=== PATIENT | male | born 1955 | race Caucasian/White ===

== ENCOUNTER → 2017-02-28 | Outpatient (CLI) | payer OTHER ==
--- NOTE | 2017-02-28 17:23 | CONS ---
CONSULTATION REASON FOR CONSULTATION: Consultation note for sleep apnea. This is a 62-year-old male patient, who has been diagnosed and treated for obstructive sleep apnea more than 10 years ago and his initial evaluation was done at [facility]. Back then, the patient was told to have severe PATRICIO and was given CPAP therapy which he used for few years with good success and ultimately quit. The patient is coming in for evaluation knowing that he has become symptomatic again. He is having increased snoring, increased hypersomnia and sleepiness and he is having increased nocturia. He goes to bed around 10:00 pm, wakes up 6:00 am in the morning. He snores very loud and he quits breathing as reported by the . He is quite sleepy during the day. Sometimes he feels that he has an increased risk of falling asleep while driving. However he has never fallen asleep behind the wheel. Nor he has never been involved in a motor vehicle accident. No recent weight gain or weight loss. His sleep is fragmented and he wakes up constantly throughout the night mainly to urinate. He is coming in to be evaluated for obstructive sleep apnea. PAST MEDICAL HISTORY: PATRICIO by history, hyperlipidemia and hypertension. Surgical history include appendectomy, cholecystectomy, hernia repair, carpal tunnel release and tonsillectomy. DRUG ALLERGIES: Not known. OUTPATIENT MEDICATION LIST: Includes Lipitor 40 daily, metoprolol succinate 50 mg ER 1 tablet a day. day, aspirin 81 mg p.o. daily. SOCIAL HISTORY: The patient is a nonsmoker. No history of alcohol. No history of IV drugs. FAMILY HISTORY: Negative for sleep apnea. REVIEW OF SYSTEMS: 12-point review of system was done and positive findings are mentioned above in the history of present illness. Of significance is the absence of any sleepwalking, no dry mouth. No anxiety or panic attacks. No palpitation. No nocturnal chest pain, heart burn or no shortness of breath. No anxiety. No problems with memory or concentration. No irritability. No depression. No sexual dysfunction. No claustrophobia. PHYSICAL EXAMINATION: BP is 147/78, pulse 71, respirations 16, temperature 98.1, saturation 95% on room air. Weight is 238. Height is 5 feet 10 inches, neck size 17 inches. BMI 34.1. General appearance calm comfortable. No acute distress. Head is atraumatic, normocephalic. Neck: Short, supple, Mallampati class 1. No goiter or neck masses. LUNGS: Clear to auscultation. HEART: Sounds regular rate and rhythm. Normal S1, S2. No S3, S4. No murmurs. ABDOMEN: Soft, nontender. No organomegaly. Extremities there is no edema. No cyanosis or clubbing. NEUROLOGIC: Alert and oriented x3. No focal neurological deficits. Psychiatric: No anxiety or depression. SKIN: Negative for ulcerations, wound or cellulitis. IMPRESSION: 1. Symptomatic sleep apnea currently the patient is coming in for reevaluation. After being treated approximately 10 years ago the patient is requesting reevaluation knowing that he has become more symptomatic. 2. Hyperlipidemia. 3. Hypertension. PLAN: We will schedule the patient for a split night study. Split night will re-establish the patient's diagnosis and if his AHI is more than 40, we will proceed with CPAP treatment during the same setting. We will make further adjustments on the CPAP pressure, mask interface based on his clinical response and compliance. We will continue to follow. MMODL / IJN: [id number] /
== END ==
LOC: SLEEP 14:40
PROVIDERS: ATTEND Internal Medicine Critical Care Medicine
DX: G47.33 Obstructive sleep apnea (adult) (pediatric) (principal); E78.5 Hyperlipidemia, unspecified; I10 Essential (primary) hypertension; Z79.899 Other long term (current) drug therapy; Z79.82 Long term (current) use of aspirin
CPT/HCPCS: 99211

== ENCOUNTER → 2017-06-06 | Outpatient (CLI) | payer OTHER ==
--- NOTE | 2017-06-06 14:30 | PN ---
PROGRESS NOTE This is a 62-year-old male patient who [facility] in regards to obstructive sleep apnea. The patient was diagnosed having PATRICIO more than 10 years ago. He had become more symptomatic and he was reporting snoring and hypersomnia and sleepiness and for that reason, the patient underwent a followup screening polysomnogram during which he was found to have mild PATRICIO with an AHI of 5.5, worse during REM, knowing that his AHI during REM was high as 39.6, and he was having some desaturations. The patient was having chronic hypersomnia and sleepiness and an Francisco score of 13 and based on that, I gave him an automatic CPAP unit with a minimum pressure of 5, maximum pressure of 20 and today he is coming in for a compliancy check. The patient is reporting that his sleep quality improved with oral CPAP therapy. He is sleeping much more comfortable and he is waking up much more alert and refreshed during the day and he is benefitting from the treatment. He is using an AirFit P10 nose pillow. His Francisco score is down to 7. He has been utilizing his CPAP on an average of 6.3 hours per night. His CPAP use for more than 4 hours is above 90%. His leak factor is at 10 L/minute. His AHI while on treatment is down to 2.1. He has no complaints and he is benefitting from the treatment. His current vital signs are as follows: BP is 120/75, pulse 67, respirations 18, Francisco score is down to 7, saturation 97% on room air. Weight is 243. GENERAL APPEARANCE: Calm, comfortable, not in distress. Head is atraumatic, normocephalic. Neck is supple. Short, no goiter or neck masses. Mallampati class 4. LUNGS: Clear to auscultation. Heart sounds are regular rate and rhythm. Normal S1, S2. No S3, S4. No murmurs. Abdomen is soft, nontender. No organomegaly. EXTREMITIES: No edema. No cyanosis or clubbing. NEUROLOGIC: Alert and oriented x3. There is no focal neurological deficits. PSYCHIATRIC: Negative for anxiety or depression. SKIN: Negative for any wounds or ulceration. IMPRESSION: 1. Mild obstructive sleep apnea, REM specific with an apnea-hypopnea index of o5.5 at baseline. The patient underwent successful auto CPAP treatment. 2. Chronic hypersomnia, improved with CPAP therapy. 3. Snoring, recovered with CPAP therapy. 4. Obesity with body mass index of 34. 5. Hyperlipidemia. 6. Hypertension. PLAN: Treatment is successful, continue with same pressure setting. Compliance data was reviewed. Encourage weight loss and no other adjustments from my standpoint, the patient will see him back in followup in a year's time, earlier if needed. CARLIN / NATACHAN: [id number] /
== END | disposition home or self-care (01) ==
LOC: SLEEP 12:05
PROVIDERS: ATTEND Internal Medicine Critical Care Medicine
DX: G47.33 Obstructive sleep apnea (adult) (pediatric) (principal); E66.9 Obesity, unspecified; E78.5 Hyperlipidemia, unspecified; I10 Essential (primary) hypertension; Z68.34 Body mass index [BMI] 34.0-34.9, adult

== ENCOUNTER 2019-01-30 15:35 | Observation (INO) | payer MEDICARE ==
--- NOTE | 2019-01-30 16:21 | ED ---
ENT HPI - General Source: patient Mode of arrival: ambulatory Limitations: no limitations <Norma North - Last Filed: 01/30/19 18:25> <Orlando Howell - Last Filed: 01/30/19 18:43> - General Chief complaint: ENT Stated complaint: Poss mastoiditis Time Seen by Provider: 01/30/19 16:19 - History of Present Illness Initial comments: 64-year-old male with no severe past medical history presenting today for chief complaint of redness of the scalp. Patient states he has had ear pain of the right ear on and off for the past week. Patient states this subsided today. Patient states and he thought the ear pain management been referred pain from a tooth otherwise no specific tooth pain and presented his dentist. Dentist thought he may have mastoiditis secondary to redness behind the right ear and sent to the emergency department for evaluation. Patient states that he noticed some mild discomfort behind the ear and redness but today said the redness spread across his forehead towards the other ear. Patient denies any blistering or severe pain denies any visual changes or eye pain. Patient denies any other affected areas. Patient denies any medications. Remaining review of system negative. Upon arrival patient appears well signs of acute distress. Afebrile. Denies history of fever or flulike symptoms. (Norma North) - Related Data Home Medications Medication Instructions Recorded Confirmed Aspirin EC [Ecotrin Low Dose] 81 mg PO HS 01/30/19 01/30/19 Clindamycin HCl [Cleocin] 150 mg PO QID 01/30/19 01/30/19 Diltiazem HCl [Cartia Xt] 180 mg PO HS 01/30/19 01/30/19 Multivit-Min/FA/Lycopen/Lutein 1 tab PO HS 01/30/19 01/30/19 [Centrum Silver Men Tablet] Rosuvastatin [Crestor] 20 mg PO HS 01/30/19 01/30/19 Allergies Allergy/AdvReac Type Severity Reaction Status Date / Time No Known Allergies Allergy Verified 01/30/19 17:58 Review of Systems ROS Other: All systems not noted in ROS Statement are negative. <Norma North - Last Filed: 01/30/19 18:25> ROS Other: All systems not noted in ROS Statement are negative. <Orlando Howell - Last Filed: 01/30/19 18:43> ROS Statement: Those systems with pertinent positive or pertinent negative responses have been documented in the HPI. 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 History of Any Multi-Drug Resistant Organisms: None Reported Past Surgical History: Appendectomy, Cholecystectomy Additional Past Surgical History / Comment(s): carpal tunnel Past Psychological History: No Psychological Hx Reported Smoking Status: Never smoker Past Alcohol Use History: None Reported Past Drug Use History: None Reported <Norma North - Last Filed: 01/30/19 18:25> General Exam Limitations: no limitations <Norma North - Last Filed: 01/30/19 18:25> - General Exam Comments Initial Comments: General: The patient is awake and alert, in no distress Eye: +3 mm pupils are equal, round and reactive to light, extra-ocular move ments are intact. No nystagmus. There is normal conjunctiva bilaterally. No signs of icterus. No photophobia Ears, nose, mouth and throat: There are moist mucous membranes and no oral lesions. Oropharynx was not erythematous there is no tonsillar enlargement exudates or lesions. Uvula midline. Tympanic membranes are not erythematous or is no effusions bulging or retraction. There is no tenderness to palpation of the left mastoid. Very mild tenderness to patient over the right mastoid. There is mild redness of the posterior right ear that extends across the f orehead and toward see a septal region. Extensive. No blistering or vesicular lesions. No anterior cervical lymphadenopathy. Rhinorrhea, clear and bilateral nares. No tripoding, no drooling. Neck: The neck is supple, there is no tenderness or JVD. No nuchal rigidity Cardiovascular: There is a regular rate and rhythm. No murmur, rub or gallop is appreciated. Respiratory: Lungs are clear to auscultation, respirations are non-labored, breath sounds are equal. No wheezes, stridor, rales, or rhonchi. No retractio ns or abdominal breathing. Musculoskeletal: Normal ROM, no tenderness. Strength 5/5. Sensation intact. Radial pulses equal bilaterally 2+. Neurological: A&O x 3. CN II-XII intact grossly, There are no obvious motor or sensory deficits. Coordination appears grossly intact. Speech appears normal, no muffling. Skin: Skin is warm and dry and no rashes or lesions are noted. No extremity edema Psychiatric: Cooperative (Norma North) Course <Orlando Howell - Last Filed: 01/30/19 18:43> Vital Signs 01/30/19 01/30/19 15:54 17:43 Temperature 98.4 F Pulse Rate 68 59 L Respiratory 18 18 Rate Blood Pressure 118/65 118/68 O2 Sat by Pulse 97 95 Oximetry - Reevaluation(s) Reevaluation #1: 01/30/19 18:42 Patient reexamined and reevaluated by myself, Dr. Howell. I do agree with PA Findings. This includes diagnostic interpretation and treatment plan. Case was discussed in detail with Dr. Wall, who will admit covered for Dr. Barksdale. Patient does have cellulitis near the right ear and right side of the face with mild swelling and tenderness. Cellulitis does extend to the left superior parietal region as well. There is some mild TM erythema. (Orlando Howell) Medical Decision Making - Lab Data Result diagrams: 01/30/19 17:06 01/30/19 17:06 <Norma North - Last Filed: 01/30/19 18:25> - Lab Data Result diagrams: 01/30/19 17:06 01/30/19 17:06 <Orlando Howell - Last Filed: 01/30/19 18:43> - Medical Decision Making 64-year-old male presenting for redness over the scalp. Concern for mastoiditis. CT negative for mastoiditis. No leukocytosis. Patient afebrile well-appearing there is extensive cellulitis of the scalp. Given the extensive nature of the cellulitis with location on the head after denies vomiting or bladder she preferred admission for IV antibiotics and monitoring. Dr. Wall accepted admission. Patient given Rocephin including the mycin in the emergency department. Patient is agreeable to admission. Patient transferred to the floor appearing well (Norma North) - Lab Data Lab Results 01/30/19 01/30/19 01/30/19 Range/Units 17:06 17:06 17:06 WBC 10.2 (3.8-10.6) k/uL RBC 4.48 (4.30-5.90) m/uL Hgb 13.4 (13.0-17.5) gm/dL Hct 40.6 (39.0-53.0) % MCV 90.6 (80.0-100.0) fL MCH 30.0 (25.0-35.0) pg MCHC 33.1 (31.0-37.0) g/dL RDW 12.8 (11.5-15.5) % Plt Count 188 (150-450) k/uL Neutrophils % 72 % Lymphocytes % 16 % Monocytes % 8 % Eosinophils % 1 % Basophils % 1 % Neutrophils # 7.3 (1.3-7.7) k/uL Lymphocytes # 1.7 (1.0-4.8) k/uL Monocytes # 0.8 (0-1.0) k/uL Eosinophils # 0.1 (0-0.7) k/uL Basophils # 0.1 (0-0.2) k/uL Sodium 138 (137-145) mmol/L Potassium 4.1 (3.5-5.1) mmol/L Chloride 105 (98-107) mmol/L Carbon Dioxide 24 (22-30) mmol/L Anion Gap 9 mmol/L BUN 24 H (9-20) mg/dL Creatinine 0.77 (0.66-1.25) mg/dL Est GFR (CKD-EPI)AfAm >90 (>60 ml/min/1.73 sqM) Est GFR (CKD-EPI)NonAf >90 (>60 ml/min/1.73 sqM) Glucose 87 (74-99) mg/dL Plasma Lactic Acid Demetri 1.0 (0.7-2.0) mmol/L Calcium 9.2 (8.4-10.2) mg/dL Total Bilirubin 0.6 (0.2-1.3) mg/dL AST 36 (17-59) U/L ALT 34 (21-72) U/L Alkaline Phosphatase 99 (38-126) U/L Total Protein 7.9 (6.3-8.2) g/dL Albumin 4.2 (3.5-5.0) g/dL Disposition Is patient prescribed a controlled substance at d/c from ED?: No Time of Disposition: 18:24 Decision to Admit Reason: Admit from EC Decision Date: 01/30/19 Decision Time: 18:24 <Norma North - Last Filed: 01/30/19 18:25> <Orlando Howell - Last Filed: 01/30/19 18:43> Clinical Impression: Cellulitis, Cellulitis of head or scalp Disposition: ADMITTED IP TO THIS [facility] Condition: Stable Referrals: Armando Barksdale MD [Primary Care Provider] - 1-2 days
[2019-01-30] MEDS ORDERED: CLINDAMYCIN 600 MG in DEXTROSE 5% IN WATER 50 ML IVPB STA ×2 (16:42)
[2019-01-30 17:19] LABS: Basophils # (A) 0.1 k/uL (0-0.2); Basophils % (A) 1 %; Eosinophils # (A) 0.1 k/uL (0-0.7); Eosinophils % (A) 1 %; HCT 40.6 % (39.0-53.0); HGB 13.4 gm/dL (13.0-17.5); Lymphocytes # (A) 1.7 k/uL (1.0-4.8); Lymphocytes % (A) 16 %; MCHC 33.1 g/dL (31.0-37.0); MCV 90.6 fL (80.0-100.0); Mean Platelet Volume 6.4; Monocytes # (A) 0.8 k/uL (0-1.0); Monocytes % (A) 8 %; Neutrophils # (A) 7.3 k/uL (1.3-7.7); Neutrophils % (A) 72 %; Platelet Count 188 k/uL (150-450); RBC 4.48 m/uL (4.30-5.90); RDW 12.8 % (11.5-15.5); WBC 10.2 k/uL (3.8-10.6)
[2019-01-30 17:28] LABS: ALT 34 U/L (21-72); AST 36 U/L (17-59); African American GFR (CKD) >90 (>60 ml/min/1.73 sqM); Albumin 4.2 g/dL (3.5-5.0); Alkaline Phosphatase 99 U/L (38-126); Anion Gap 9 mmol/L; Blood Urea Nitrogen 24 mg/dL (9-20); Calcium 9.2 mg/dL (8.4-10.2); Carbon Dioxide 24 mmol/L (22-30); Chloride 105 mmol/L (98-107); Glucose 87 mg/dL (74-99); Non-African American GFR(CKD) >90 (>60 ml/min/1.73 sqM); Potassium 4.1 mmol/L (3.5-5.1); Sodium 138 mmol/L (137-145); Total Bilirubin 0.6 mg/dL (0.2-1.3); Total Protein 7.9 g/dL (6.3-8.2)
--- NOTE | 2019-01-30 17:36 | CT ---
EXAMINATION TYPE: CT mastoid wo con DATE OF EXAM: 01/30/2019 COMPARISON: HISTORY: Mastoiditis CT DLP: 315.6 mGycm. Automated Exposure Control for Dose Reduction was Utilized. TECHNIQUE: CT scan of internal auditory canal is performed without contrast, thin cut axial images ar e obtained, coronal reformatted images are also reviewed. FINDINGS: There is normal aeration of the temporal bones. External auditory canals appear normal. Mas toid sinuses appear normal. There is normal aeration of the epitympanic recess bilaterally. Semicircu lar canals appear intact. I see no bony destructive process. IMPRESSION: Normal CT scan of the temporal bones. No evidence of mastoiditis.
[2019-01-30] MEDS ORDERED: cefTRIAXone IN SWFI 1,000 MG/10 ML SYRINGE IVP STA (18:14)
[2019-01-30] MEDS ORDERED: IBUPROFEN 400 MG TAB PO PRN (18:24)
[2019-01-30] MEDS ORDERED: ACETAMINOPHEN TAB 325 MG TAB PO PRN (18:24)
[2019-01-30] MEDS ORDERED: NALOXONE 0.4 MG/ML 1 ML VIAL IV PRN (18:24)
[2019-01-30] MEDS ORDERED: traMADol 50 MG TAB PO PRN (18:24)
[2019-01-30] MEDS ORDERED: ONDANSETRON 4 MG/2 ML VIAL IVP PRN (18:24)
[2019-01-30 20:00] VITALS: RESP 16
[2019-01-30 20:59] VITALS: BMI 27.8
[2019-01-30] MEDS: SODIUM CHLORIDE 0.9% 1,000 ML IV SCH (21:50)
[2019-01-30] MEDS: ATORVASTATIN 40 MG TAB PO SCH (21:54)
[2019-01-30] MEDS: ASPIRIN 81 MG PO SCH (21:54)
[2019-01-30] MEDS: VIT A,C & E-LUTEIN-MINERALS 1 EACH TAB PO SCH (22:16)
[2019-01-30] MEDS: DILTIAZEM CD 180 MG CAP.ER.24H PO SCH (22:16)
[2019-01-31] MEDS: SODIUM CHLORIDE 0.9% 1,000 ML IV SCH ×3 (04:55→15:01)
[2019-01-31] MEDS ORDERED: VANCOMYCIN IV PER PHARMACY 1 EACH MISC MISCELLANE PRN (11:08)
[2019-01-31] MEDS ORDERED: VANCOMYCIN 2,000 MG in SODIUM CHLORIDE 0.9% 500 ML 500 ML IVPB ONE (12:00)
[2019-01-31] MEDS: NAPROXEN 250 MG TAB PO SCH ×2 (15:02→21:41)
[2019-01-31] MEDS: ATORVASTATIN 40 MG TAB PO SCH (20:07)
[2019-01-31] MEDS: ASPIRIN 81 MG PO SCH (20:07)
[2019-01-31] MEDS: VANCOMYCIN 1,500 MG in SODIUM CHLORIDE 0.9% 250 ML IVPB SCH (20:07)
[2019-01-31] MEDS: DILTIAZEM CD 180 MG CAP.ER.24H PO SCH (20:28)
[2019-01-31] MEDS: VIT A,C & E-LUTEIN-MINERALS 1 EACH TAB PO SCH (20:28)
--- NOTE | 2019-01-31 22:29 | P.HPIM ---
History of Present Illness H&P Date: 01/31/19 Chief Complaint: Redness scalp History of presenting complaint: This is a very pleasant 64-year-old patient of Dr. Armando Barksdale. Chronic stable medical conditions include hyperlipidemia, hypertension, Raynaud's disease. Patient about a week ago started out to her ear infection to slowly continued to spread. He went to affect the right side of the face and upper the scalp. It especially tender to touch. No obvious fever no chills. Patient did see his family doctor. Was put on clindamycin. It was not improving. Having failed outpatient treatment she decided to come in. Patient does use a Q-tip every night. Does not remember any insect bite. Or any local trauma otherwise. Neither nausea nor vomiting. Patient did get a dose of IV clindamycin in the ER. Review of systems: GEN.: Tired EYES: None HEENT: As above NECK: None RESPIRATORY: None CARDIOVASCULAR: None GASTROINTESTINAL: None GENITOURINARY: None MUSCULOSKELETAL: None LYMPHATICS: None HEMATOLOGICAL: None PSYCHIATRY: None NEUROLOGICAL: None Social history: Does not smoke or drink alcohol. . Retired. Family history: Reviewed, noncontributory to presentation Physical examination: VITAL SIGNS: [28.4, 68, 18, 11 8/65, 97% room air GENERAL: [BMI 27.9, sitting up in a chair bed comfortable. EYES: Pupils equal. Conjunctiva normal. HEENT: Patient has some redness of the external ear on the right side some redness of the adjoining part of the face going up to Scalp. Tender to touch.. NECK: JVD not raised; masses not palpable. HEART: First and second heart sounds are normal; no edema. LUNGS: Respiratory rate normal; clear to auscultation. ABDOMEN: Soft, nontender, liver spleen not palpable, no masses palpable. PSYCH: Alert and oriented x3; mood and affect normal. NEUROLOGICAL: Cranial nerves grossly intact; no facial asymmetry, power and sensation grossly intact. LYMPHATICS: No lymph nodes palpable in the axilla and neck INVESTIGATIONS, reviewed in the clinical context: White count 10.2 hemoglobin 13.4 platelets 188 percussion 4.[address] of the mastoid without contrast-negative Assessment: -Acute otitis externa, possibly been precipitated by use of a Q-tip causing microtrauma leading to cellulitis that there have spread to the face and the scalp, something like erysipelas. Having failed outpatient treatment with clindamycin. Patient does not have any fever and chills. -Hyperlipidemia -Essential hypertension -Raynaud's disease Plan: Patient started and IV vancomycin. Today. We'll give another dose tomorrow morning. Hoping that should improve. We'll try to skin walked area. Patient then could be possibly discharged on Bactrim or doxycycline depending on clinical response. Patient was advised not use any Q-tip. Told the nurse to use a warm compress. Care discussed with the patient yajaira Browning. 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 History of Any Multi-Drug Resistant Organisms: None Reported Past Surgical History: Appendectomy, Cholecystectomy Additional Past Surgical History / Comment(s): carpal tunnel Past Anesthesia/Blood Transfusion Reactions: No Reported Reaction Past Psychological History: No Psychological Hx Reported Smoking Status: Never smoker Past Alcohol Use History: None Reported Past Drug Use History: None Reported Medications and Allergies Home Medications Medication Instructions Recorded Confirmed Type Aspirin EC [Ecotrin Low Dose] 81 mg PO HS 01/30/19 01/30/19 History Clindamycin HCl [Cleocin] 150 mg PO QID 01/30/19 01/30/19 History Diltiazem HCl [Cartia Xt] 180 mg PO HS 01/30/19 01/30/19 History Multivit-Min/FA/Lycopen/Lutein 1 tab PO HS 01/30/19 01/30/19 History [Centrum Silver Men Tablet] Rosuvastatin [Crestor] 20 mg PO HS 01/30/19 01/30/19 History Allergies Allergy/AdvReac Type Severity Reaction Status Date / Time No Known Allergies Allergy Verified 01/30/19 17:58 Physical Exam Vitals: Vital Signs Temp Pulse Resp BP Pulse Ox 01/31/19 20:25 98.1 F 48 L 16 123/70 96 01/31/19 15:19 16 01/31/19 15:00 97.8 F 62 16 128/73 95 01/31/19 07:29 16 01/31/19 04:40 98.3 F 58 L 16 119/70 94 L 01/31/19 00:26 73 Intake and Output 01/31/19 01/31/19 01/31/19 06:59 14:59 22:59 Other: Voiding Method Toilet Toilet Toilet # Voids 2 2 1 Results CBC & Chem 7: 01/30/19 17:06 01/30/19 17:06 Labs: Microbiology - Last 24 Hours (Table) 01/30/19 17:06 Blood Culture - Preliminary Blood No Growth after 24 hours Thrombosis Risk Factor Assmnt - Choose All That Apply Any of the Below Risk Factors Present?: Yes Each Factor Represents 1 point: Age 41-60 years Thrombosis Risk Factor Assessment Total Risk Factor Score: 1 Thrombosis Risk Factor Assessment Level: Low Risk
--- NOTE | 2019-01-31 22:58 | P.CONS ---
History of Present Illness - Reason for Consult Consult date: 01/31/19 - Chief Complaint Pain left side of face - History of Present Illness Pleasant 64-year-old male who relates that he had a somewhat sudden onset of significant pain near his right jaw. He thought maybe he was having some difficulty with an upper tooth. He took some anti-inflammatory and has some slight improvement. He believes the next day he then started to have some increasing amount of pain especially at the right ear and the area became considerably more tender over the ear in the jaw area. He probably was seen in the outpatient clinic and they became concerned so the possibility of a mastoiditis given the redness pain and difficulty in the area and he was sent to hospital. He subsequently underwent some imaging studies which did not reveal mastoiditis with the patient evidence of a significant amount of erythema that was on the right side of the face that tracked up onto the scalp and involved the anterior aspect of the ear. With evidence of the cellulitis the patient was admitted and the consult was requested. The patient has not had any difficulties like this in the past. He had no trauma to the area, as noted was seen by dentist with no evidence of any intraoral disease. He does not have any complaints of tooth pain either. Review of Systems HEENT:Denies headache or acute visual change. Denies sinus discomforts. Denies neck stiffness or pain. Denies difficulty on swallowing. As per the HPI is discomfort on the outside of the right lateral jaw and preauricular area Lungs: Denies significant shortness of breath, cough, sputum production, or hemoptysis. Cardiovascular: Denies significant shortness of breath, chest pain, chest wall pain, orthopnea, dyspnea on exertion, syncope Gastrointestinal:Denies nausea, vomiting, diarrhea, constipation, hematemesis, melena, hematochezia. No no significant change of bowel habit noticed. Musculoskeletal: denies significant myalgias or arthralgias. No new joint swel ling. Denies new back pain. Skin: Denies new rash or lesions. No new ulcers or wounds are related.. Neuro: Denies headache or visual change. Denies any new onset weakness or difficulty with ambulation. Denies falls or seizures. Psychiatric:Denies anxiety or depression. Endocrine: Denies significant fatigue, patient has had a greater than 50 pound weight loss. His was diagnosed with diabetes and they went on a lifestyle change and with that he hopes his antihypertensive and his cholesterol medication will be stopped in the future He is very pleased. 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 In his fdc he has obtained 9 miniature horses that he cares for and shows. 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 He is very physically active man. He does not have service. He does not have extensive travel. No other animals. He does not have a history of tobacco or alcohol use. When he was younger he was motorcycle rider and has many tattoos. Smoking Status: Never smoker Past Alcohol Use History: None Reported Past Drug Use History: None Reported Medications and Allergies Home Medications and Allergies Comment(s): Current Medications Acetaminophen (Tylenol Tab) 650 mg PO Q6HR PRN PRN Reason: Mild Pain or Fever > 100.5 Aspirin (Aspirin) 81 mg PO [facility] Last Admin: 01/31/19 20:07 Dose: 81 mg Documented by: Atorvastatin Calcium (Lipitor) 40 mg PO [facility] Last Admin: 01/31/19 20:07 Dose: 40 mg Documented by: Diltiazem HCl (Cardizem Cd) 180 mg PO [facility] Last Admin: 01/31/19 20:28 Dose: 180 mg Documented by: Enoxaparin Sodium (Lovenox) 40 mg SQ DAILY@2100 [place] Vancomycin HCl 1,500 mg/ (Sodium Chloride) 250 mls @ 125 mls/hr IVPB Q8H [facility] Last Admin: 01/31/19 20:07 Dose: 125 mls/hr Documented by: Multivitamins/Minerals (Ivite) 1 each PO [facility] Last Admin: 01/31/19 20:28 Dose: 1 each Documented by: Naloxone HCl (Narcan) 0.2 mg IV Q2M PRN PRN Reason: Opioid Reversal Naproxen (Naprosyn) 250 mg PO TID [facility] Last Admin: 01/31/19 21:41 Dose: 250 mg Documented by: Ondansetron HCl (Zofran) 4 mg IVP Q8HR PRN PRN Reason: Nausea And Vomiting Tramadol HCl (Ultram) 50 mg PO Q6H PRN PRN Reason: Moderate Pain Last Admin: 01/31/19 02:27 Dose: 50 mg Documented by: Home Medications Medication Instructions Recorded Confirmed Type Aspirin EC [Ecotrin Low Dose] 81 mg PO HS 01/30/19 01/30/19 History Clindamycin HCl [Cleocin] 150 mg PO QID 01/30/19 01/30/19 History Diltiazem HCl [Cartia Xt] 180 mg PO HS 01/30/19 01/30/19 History Multivit-Min/FA/Lycopen/Lutein 1 tab PO HS 01/30/19 01/30/19 History [Centrum Silver Men Tablet] Rosuvastatin [Crestor] 20 mg PO HS 01/30/19 01/30/19 History Allergies Allergy/AdvReac Type Severity Reaction Status Date / Time No Known Allergies Allergy Verified 01/30/19 17:58 Physical Exam Vitals: Vital Signs Temp Pulse Resp BP Pulse Ox 01/31/19 20:25 98.1 F 48 L 16 123/70 96 01/31/19 15:19 16 01/31/19 15:00 97.8 F 62 16 128/73 95 01/31/19 07:29 16 01/31/19 04:40 98.3 F 58 L 16 119/70 94 L 01/31/19 00:26 73 Intake and Output 01/31/19 01/31/19 01/31/19 06:59 14:59 22:59 Other: Voiding Method Toilet Toilet Toilet # Voids 2 2 1 64-year-old male who appears younger than his stated age, appears to be quite fit HEENT: Anicteric conjunctiva are pink and moist nasal mucosa grossly intact without significant lesions, there is no thrush. On the right side of the face at the jaw is evidence of the erythema that extends to the preauricular area and onto the scalp. There is dryness to the skin. There is flaking to the skin. It does not send on to the neck below the jaw. It does not penetrate into the optic canal, there are no blisters or vesicles anywhere in this region. The skin is mildly tender to touch but not severely so. There is only some scant lymphadenopathy in anterior cervical chain bilaterally. Neck: The neck is supple without thyromegaly. Lungs: Good bilateral air entry without significant crackles or wheezing. There is no significant bronchial sounds. There is no egophony or dullness. Heart: Regular rate and rhythm with an audible S1-S2, no S3 no S4. There is no significant murmur click or rub, PMI was nondisplaced. Abdomen: Positive bowel sounds soft and nontender without palpable masses or organomegaly. There was no guarding or rebound. Extremities: The upper extremities have excellent pulses they are symmetric, no significant petechiae or telangiectasia. No splinter hemorrhages were noted. The lower extremities are free from significant edema. The peripheral pulses were 2+ and symmetric. Neuro: Awake alert oriented to person place and time. There are no acute new gross focal sensory motor deficits. Results CBC & Chem 7: 01/30/19 17:06 01/30/19 17:06 Labs: Microbiology - Last 24 Hours (Table) 01/30/19 17:06 Blood Culture - Preliminary Blood No Growth after 24 hours Laboratory Results WBC 10.2 k/uL (3.8-10.6) 01/30/19 17:06 RBC 4.48 m/uL (4.30-5.90) 01/30/19 17:06 Hgb 13.4 gm/dL (13.0-17.5) 01/30/19 17:06 Hct 40.6 % (39.0-53.0) 01/30/19 17:06 MCV 90.6 fL (80.0-100.0) 01/30/19 17:06 MCH 30.0 pg (25.0-35.0) 01/30/19 17:06 MCHC 33.1 g/dL (31.0-37.0) 01/30/19 17:06 RDW 12.8 % (11.5-15.5) 01/30/19 17:06 Plt Count 188 k/uL (150-450) 01/30/19 17:06 Neutrophils % 72 % 01/30/19 17:06 Lymphocytes % 16 % 01/30/19 17:06 Monocytes % 8 % 01/30/19 17:06 Eosinophils % 1 % 01/30/19 17:06 Basophils % 1 % 01/30/19 17:06 Neutrophils # 7.3 k/uL (1.3-7.7) 01/30/19 17:06 Lymphocytes # 1.7 k/uL (1.0-4.8) 01/30/19 17:06 Monocytes # 0.8 k/uL (0-1.0) 01/30/19 17:06 Eosinophils # 0.1 k/uL (0-0.7) 01/30/19 17:06 Basophils # 0.1 k/uL (0-0.2) 01/30/19 17:06 Sodium 138 mmol/L (137-145) 01/30/19 17:06 Potassium 4.1 mmol/L (3.5-5.1) 01/30/19 17:06 Chloride 105 mmol/L (98-107) 01/30/19 17:06 Carbon Dioxide 24 mmol/L (22-30) 01/30/19 17:06 Anion Gap 9 mmol/L 01/30/19 17:06 BUN 24 mg/dL (9-20) H 01/30/19 17:06 Creatinine 0.77 mg/dL (0.66-1.25) 01/30/19 17:06 Est GFR (CKD-EPI)AfAm >90 (>60 ml/min/1.73 sqM) 01/30/19 17:06 Est GFR (CKD-EPI)NonAf >90 (>60 ml/min/1.73 sqM) 01/30/19 17:06 Glucose 87 mg/dL (74-99) 01/30/19 17:06 Plasma Lactic Acid Demetri 1.0 mmol/L (0.7-2.0) 01/30/19 17:06 Calcium 9.2 mg/dL (8.4-10.2) 01/30/19 17:06 Total Bilirubin 0.6 mg/dL (0.2-1.3) 01/30/19 17:06 AST 36 U/L (17-59) 01/30/19 17:06 ALT 34 U/L (21-72) 01/30/19 17:06 Alkaline Phosphatase 99 U/L (38-126) 01/30/19 17:06 Total Protein 7.9 g/dL (6.3-8.2) 01/30/19 17:06 Albumin 4.2 g/dL (3.5-5.0) 01/30/19 17:06 Microbiology 01/30/19 17:06 Blood Blood Culture - Preliminary No Growth after 24 hours Assessment and Plan (1) Erysipelas Narrative/Plan: 64-year-old male who is a very active man caring for the 9 miniature horses which he had the sudden onset of pain into his right jaw. At first he thought maybe was a dental problem but there is no evidence of any intraoral disease. He quickly developed the increasing amount of erythema which spread from the right jaw. The area onto his scalp. It appears to be an area of erysipelas and is having some peeling. With antibiotic therapy he's having rapid improvement and is feeling considerably better. The plan will be for him to have another few doses of intravenous antibiotic therapy and hopefully be discharged early in the morning tomorrow so he can attend to his grandchildren that he needs to being care for tomorrow afternoon. Continue his multivitamin. If needed would be able to follow-up in the office. The patient does have exposure to horses as well as a flock of pigeons, there appears to be no direct correlation with this to the current likely streptococcal infection of his face. Current Visit: Yes Status: Acute Code(s): A46 - ERYSIPELAS SNOMED Code(s): 57014438
[2019-01-31] MEDS: ENOXAPARIN 40 MG/0.4 ML SYRINGE SQ SCH ×2 (23:30→23:44)
[2019-02-01 01:57] VITALS: PULSE 55
[2019-02-01] MEDS: VANCOMYCIN 1,500 MG in SODIUM CHLORIDE 0.9% 250 ML IVPB SCH ×2 (03:08→11:56)
[2019-02-01 05:52] VITALS: TEMP 97.3
[2019-02-01] MEDS: NAPROXEN 250 MG TAB PO SCH (08:24)
[2019-02-01 09:36] VITALS: BP 129/67
[2019-02-01 11:40] LABS: African American GFR (CKD) >90 (>60 ml/min/1.73 sqM); Non-African American GFR(CKD) >90 (>60 ml/min/1.73 sqM)
[2019-02-01 11:51] LABS: Basophils # (A) 0.1 k/uL (0-0.2); Basophils % (A) 2 %; Eosinophils # (A) 0.2 k/uL (0-0.7); Eosinophils % (A) 3 %; HCT 43.1 % (39.0-53.0); HGB 14.1 gm/dL (13.0-17.5); Lymphocytes # (A) 1.6 k/uL (1.0-4.8); Lymphocytes % (A) 34 %; MCH 30.3 pg (25.0-35.0); MCHC 32.6 g/dL (31.0-37.0); MCV 92.9 fL (80.0-100.0); Mean Platelet Volume 7.2; Monocytes # (A) 0.4 k/uL (0-1.0); Monocytes % (A) 9 %; Neutrophils # (A) 2.4 k/uL (1.3-7.7); Neutrophils % (A) 49 %; Platelet Count 222 k/uL (150-450); RBC 4.64 m/uL (4.30-5.90); WBC 4.8 k/uL (3.8-10.6)
[2019-02-01] MEDS ORDERED: VANCOMYCIN TROUGH DUE 1 EACH MISC MISCELLANE ONE (19:00)
--- NOTE | 2019-02-01 22:01 | P.PN ---
Subjective Progress Note Date: 02/01/19 Pleasant 64-year-old male who relates that he had a somewhat sudden onset of significant pain near his right jaw. He thought maybe he was having some difficulty with an upper tooth. He took some anti-inflammatory and has some slight improvement. He believes the next day he then started to have some increasing amount of pain especially at the right ear and the area became considerably more tender over the ear in the jaw area. He probably was seen in the outpatient clinic and they became concerned so the possibility of a mastoiditis given the redness pain and difficulty in the area and he was sent to hospital. He subsequently underwent some imaging studies which did not reveal mastoiditis with the patient evidence of a significant amount of erythema that was on the right side of the face that tracked up onto the scalp and involved the anterior aspect of the ear. With evidence of the cellulitis the patient was admitted and the consult was requested. The patient has not had any difficulties like this in the past. He had no trauma to the area, as noted was seen by dentist with no evidence of any intraoral disease. He does not have any complaints of tooth pain either. 02/01/2019 the patient is now much improved. He relates he is feeling well. The pain and discomfort has generally resolved. The burning to the skin, ear pain and jaw pain have all resolved. He feels very well, no fevers chills or rigors. Does not all feel ill like he did when he presented. Objective - Vital Signs Vital signs: Vital Signs Temp 97.3 F L 02/01/19 05:35 Pulse 55 L 02/01/19 05:35 Resp 16 02/01/19 08:00 BP 129/67 02/01/19 09:32 Pulse Ox 96 02/01/19 09:32 Intake & Output 02/01/19 02/01/19 02/02/19 06:59 18:59 06:59 Intake Total 540 Balance 540 Intake: Oral 540 Other: Voiding Method Toilet # Voids 2 2 - Exam 64-year-old male who appears younger than his stated age, appears to be quite fit HEENT: Anicteric conjunctiva are pink and moist nasal mucosa grossly intact without significant lesions, there is no thrush. On the right side of the face at the jaw is evidence of the erythema that extends to the preauricular area and onto the scalp. There is dryness to the skin. There is flaking to the skin. It does not send on to the neck below the jaw. It does not penetrate into the optic canal, there are no blisters or vesicles anywhere in this region. The skin is now much improved. There are some dry and flaking but the redness is almost completely resolved and is no longer tender. Lymphadenopathy has resol julia. Neck: The neck is supple without thyromegaly. Lungs: Good bilateral air entry without significant crackles or wheezing. There is no significant bronchial sounds. There is no egophony or dullness. Heart: Regular rate and rhythm with an audible S1-S2, no S3 no S4. There is no significant murmur click or rub, PMI was nondisplaced. Abdomen: Positive bowel sounds soft and nontender without palpable masses or organomegaly. There was no guarding or rebound. Extremities: The upper extremities have excellent pulses they are symmetric, no significant petechiae or telangiectasia. No splinter hemorrhages were noted. The lower extremities are free from significant edema. The peripheral pulses were 2+ and symmetric. Neuro: Awake alert oriented to person place and time. There are no acute new gross focal sensory motor deficits. - Labs CBC & Chem 7: 02/01/19 10:08 02/01/19 10:08 Labs: Microbiology - Last 24 Hours (Table) 01/30/19 17:06 Blood Culture - Preliminary Blood No Growth after 48 hours Laboratory Results WBC 4.8 k/uL (3.8-10.6) 02/01/19 10:08 RBC 4.64 m/uL (4.30-5.90) 02/01/19 10:08 Hgb 14.1 gm/dL (13.0-17.5) 02/01/19 10:08 Hct 43.1 % (39.0-53.0) 02/01/19 10:08 MCV 92.9 fL (80.0-100.0) 02/01/19 10:08 MCH 30.3 pg (25.0-35.0) 02/01/19 10:08 MCHC 32.6 g/dL (31.0-37.0) 02/01/19 10:08 RDW 13.0 % (11.5-15.5) 02/01/19 10:08 Plt Count 222 k/uL (150-450) 02/01/19 10:08 Neutrophils % 49 % 02/01/19 10:08 Lymphocytes % 34 % 02/01/19 10:08 Monocytes % 9 % 02/01/19 10:08 Eosinophils % 3 % 02/01/19 10:08 Basophils % 2 % 02/01/19 10:08 Neutrophils # 2.4 k/uL (1.3-7.7) 02/01/19 10:08 Lymphocytes # 1.6 k/uL (1.0-4.8) 02/01/19 10:08 Monocytes # 0.4 k/uL (0-1.0) 02/01/19 10:08 Eosinophils # 0.2 k/uL (0-0.7) 02/01/19 10:08 Basophils # 0.1 k/uL (0-0.2) 02/01/19 10:08 Sodium 138 mmol/L (137-145) 01/30/19 17:06 Potassium 4.1 mmol/L (3.5-5.1) 01/30/19 17:06 Chloride 105 mmol/L (98-107) 01/30/19 17:06 Carbon Dioxide 24 mmol/L (22-30) 01/30/19 17:06 Anion Gap 9 mmol/L 01/30/19 17:06 BUN 24 mg/dL (9-20) H 01/30/19 17:06 Creatinine 0.69 mg/dL (0.66-1.25) 02/01/19 10:08 Est GFR (CKD-EPI)AfAm >90 (>60 ml/min/1.73 sqM) 02/01/19 10:08 Est GFR (CKD-EPI)NonAf >90 (>60 ml/min/1.73 sqM) 02/01/19 10:08 Glucose 87 mg/dL (74-99) 01/30/19 17:06 Plasma Lactic Acid Demetri 1.0 mmol/L (0.7-2.0) 01/30/19 17:06 Calcium 9.2 mg/dL (8.4-10.2) 01/30/19 17:06 Total Bilirubin 0.6 mg/dL (0.2-1.3) 01/30/19 17:06 AST 36 U/L (17-59) 01/30/19 17:06 ALT 34 U/L (21-72) 01/30/19 17:06 Alkaline Phosphatase 99 U/L (38-126) 01/30/19 17:06 Total Protein 7.9 g/dL (6.3-8.2) 01/30/19 17:06 Albumin 4.2 g/dL (3.5-5.0) 01/30/19 17:06 Microbiology 01/30/19 17:06 Blood Blood Culture - Preliminary No Growth after 48 hours Assessment and Plan (1) Erysipelas Narrative/Plan: 64-year-old male who is a very active man caring for the 9 miniature horses which he had the sudden onset of pain into his right jaw. At first he thought maybe was a dental problem but there is no evidence of any intraoral disease. He quickly developed the increasing amount of erythema which spread from the right jaw. The area onto his scalp. It appears to be an area of erysipelas and is having some peeling. With antibiotic therapy he's having rapid improvement and is feeling considerably better. The plan will be for him to have another few doses of intravenous antibiotic therapy and hopefully be discharged early in the morning tomorrow so he can attend to his grandchildren that he needs to being care for tomorrow afternoon. Continue his multivitamin. If needed would be able to follow-up in the office. The patient does have exposure to horses as well as a flock of pigeons, there appears to be no direct correlation with this to the current likely streptococcal infection of his face. 02/01/2019 patient is now had excellent resolution of the erysipelas to the right side of his face. There is no evidence of any other disease process. He responded well to antibiotic therapy. Oral antibiotic therapy with cefuroxime was sent to his pharmacy. He may follow the office if he has any further concerns. He's had an excellent response to therapy. This is likely a streptococcal infection. Status: Acute Code(s): A46 - ERYSIPELAS SNOMED Code(s): 05597656
--- NOTE | 2019-02-07 21:56 | P.DS ---
Providers Date of admission: 01/30/19 18:24 Expected date of discharge: 02/01/19 Attending physician: Jordan Wall Consults: 01/31/19 10:40 Consult Physician Routine Consulting Provider: Stevie Kohler Consult Reason/Comments: cellulitis Do you want consulting provider notified?: Yes Primary care physician: Armando Barksdale MD Hospital Course: Chief Complaint: Redness scalp Hospital course: This is a very pleasant 64-year-old patient of Dr. Armando Barksdale. Chronic stable medical conditions include hyperlipidemia, hypertension, Raynaud's disease. Patient about a week ago started out to her ear infection to slowly continued to spread. He went to affect the right side of the face and upper the scalp. It especially tender to touch. No obvious fever no chills. Patient did see his family doctor. Was put on clindamycin. It was not improving. Having failed outpatient treatment she decided to come in. Patient does use a Q-tip every night. Does not remember any insect bite. Or any local trauma otherwise. Neither nausea nor vomiting. Patient did get a dose of IV clindamycin in the ER. Patient's sister to vancomycin. Diagnosed her erysipelas and acute otitis externa. Responded very well. By the next morning much improved. Seen by Dr. Kohler from [place]. Care was discussed the patient. Consultation: Dr. Kohler from [place] Physical examination: VITAL SIGNS: 97.3, 55, 16, 134/78, 95% room air GENERAL: Sitting up, comfortable. EYES: Pupils equal. Conjunctiva normal. HEENT: Redness over the right ear and scalp much improved NECK: JVD not raised; masses not palpable. HEART: First and second heart sounds are normal; no edema. LUNGS: Respiratory rate normal; clear to auscultation. ABDOMEN: Soft, nontender, liver spleen not palpable, no masses palpable. PSYCH: Alert and oriented x3; mood and affect normal. INVESTIGATIONS, reviewed in the clinical context: White count 4.8 Previous testing White count 10.2 hemoglobin 13.4 platelets 188 percussion 4.[address] of the mastoid without contrast-negative Discharge diagnosis: -Acute otitis externa, possibly been precipitated by use of a Q-tip causing mark rotrauma leading to cellulitis that there have spread to the face and the scalp, probably erysipelas. Having failed outpatient treatment with clindamycin. -Hyperlipidemia -Essential hypertension -Raynaud's disease Disposition: Home Patient Condition at Discharge: Stable Plan - Discharge Summary Discharge Rx Participant: No New Discharge Prescriptions: New Cefuroxime Axetil [Ceftin] 500 mg PO BID #14 tab Naproxen [Naprosyn] 250 mg PO TID #15 tab Continue Rosuvastatin [Crestor] 20 mg PO HS Multivit-Min/FA/Lycopen/Lutein [Centrum Silver Men Tablet] 1 tab PO HS Diltiazem HCl [Cartia Xt] 180 mg PO HS Aspirin EC [Ecotrin Low Dose] 81 mg PO HS Discontinued Clindamycin HCl [Cleocin] 150 mg PO QID Discharge Medication List Aspirin EC [Ecotrin Low Dose] 81 mg PO HS 01/30/19 [History] Diltiazem HCl [Cartia Xt] 180 mg PO HS 01/30/19 [History] Multivit-Min/FA/Lycopen/Lutein [Centrum Silver Men Tablet] 1 tab PO HS 01/30/19 [History] Rosuvastatin [Crestor] 20 mg PO HS 01/30/19 [History] Cefuroxime Axetil [Ceftin] 500 mg PO BID #14 tab 01/31/19 [Rx] Naproxen [Naprosyn] 250 mg PO TID #15 tab 02/01/19 [Rx] Follow up Appointment(s)/Referral(s): Armando Barksdale MD [Primary Care Provider] - 02/06/19 10:15 am Patient Instructions/Handouts: Cellulitis (DC) Activity/Diet/Wound Care/Special Instructions: Regular, low fat diet Activity as tolerated. Discharge Disposition: HOME SELF-CARE
== END 2019-02-01 12:55 | disposition home or self-care (01) ==
LOC: EC 15:35 → 4MS4W 18:24
PROVIDERS: ADMIT Hospitalist; ATTEND Hospitalist
DX: H60.501 Unspecified acute noninfective otitis externa, right ear (principal); L03.211 Cellulitis of face; L03.811 Cellulitis of head [any part, except face]; E78.5 Hyperlipidemia, unspecified; I10 Essential (primary) hypertension; I73.00 Raynaud's syndrome without gangrene; Z90.49 Acquired absence of other specified parts of digestive tract; Z79.82 Long term (current) use of aspirin; Z79.899 Other long term (current) drug therapy
CPT/HCPCS: 96361; 96366 ×2; 96367; 96365; 96375; 99284; 36415; 80053; 82565; 83605; 85025 ×2; 87040; 70486; G0378 ×3; J3370 ×2; J0696

== ENCOUNTER → 2021-09-14 | Outpatient (CLI) | payer MEDICARE ==
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
== END ==
LOC: SLEEP 14:40
PROVIDERS: ATTEND Internal Medicine Critical Care Medicine
DX: G47.33 Obstructive sleep apnea (adult) (pediatric) (principal); I10 Essential (primary) hypertension; E78.5 Hyperlipidemia, unspecified; Z99.89 Dependence on other enabling machines and devices; Z79.899 Other long term (current) drug therapy
CPT/HCPCS: 99211